=== PATIENT | male | born 1970 | race Caucasian/White ===

== ENCOUNTER 2020-02-05 18:24 | Inpatient (IN) | payer OTHER, SELFPAY ==
[2020-02-05 18:26] VITALS: BP 183/110; PULSE 120; RESP 20; TEMP 37.1; O2SAT 98; BMI 20.5
--- NOTE | 2020-02-05 18:38 | ED.VIS.GEN ---
History of Present Illness Chief Complaint: Substance Abuse Informant: Patient Onset: Days Context: Gradual Onset Timing: Continuous Current Severity: Moderate Maximum Severity: Moderate Narrative: The patient is a 50-year-old male with no significant medical history that presents to the emergency department requesting detox from alcohol. Patient states he drinks at least 6 beers a night. He states on the weekends, he will drink 10-12. He states his been doing this for years. He states his up point where it is affecting his job. He actually went through [facility] and was referred here. He does admit to some tremulousness and mild anxiety. He denies any fevers or chills. He denies any other systemic symptoms. Prior similar symptoms: No Recent Illness/Hospitalization: No Past Medical History - Allergies and Home Meds Allergies/Adverse Reactions: Allergies No Known Allergies Allergy (Verified 02/05/20 18:26) Primary Care Physician: Amelia Caputo MD [Primary Care Provider] - Prior records reviewed: Yes Past Medical History: None Surgical History: no surgical history Smoking Status: Unknown if ever smoked Review of Systems General: Denies: Chills, Fever, Sweats Eyes: Denies: Visual changes - bilaterally, Diplopia ENT: Denies: Rhinorrhea, Sore throat Cardiovascular: Denies: Chest pain, Palpitations Respiratory: Denies: Dyspnea, Cough, Dyspnea on exertion Gastrointestinal: Denies: Abdominal pain, Nausea, Vomiting, Diarrhea, Melena, Hematochezia Genitourinary: Denies: Dysuria, Hematuria, Frequency Musculoskeletal: Denies: Back pain, Extremity Pain Skin: Denies: Rash, Wounds Neurological: Denies: Headache, Weakness, Numbness Physical Exam Vital Signs/Narrative: Vital Signs Temp Pulse Resp BP Pulse Ox 02/05/20 18:26 98.8 F 120 H 20 H 183/110 H 98 Inital Vital Signs reviewed: Yes General: Well nourished, Well developed, No Acute Distress Head: Normocephalic, Atraumatic Eyes: Perrl, EOMI ENT: Moist mucous membranes, No rhinorrhea Neck: Supple, Nontender Cardiovascular: Regular rate, Regular rhythm, No murmurs Respiratory: No distress, CTA bilaterally, Chest nontender Abdomen: Soft, Nontender, Nondistended, Normal bowel sounds Back: Nontender, Normal Inspection Extremities: Nontender, No edema Skin: Normal color, No rash Neurological: Alert, Oriented x3, Cranial nerves II-XII grossly intact, Normal Strength, Normal Sensation Psychological: Normal affect, Normal Mood Diagnostic/Tx/Re-eval Abnormal Lab Results 02/05/20 02/05/20 02/05/20 19:04 19:04 19:04 WBC 5.2 RBC 4.59 L Hgb 15.1 Hct 44.7 MCV 97.4 H MCH 32.9 H MCHC 33.8 RDW Std Deviation 43.1 RDW Coeff of Arvin 11.9 Plt Count 220 MPV 8.5 Immature Gran % (Auto) 0.200 Neut % (Auto) 68.1 Lymph % (Auto) 19.4 [place] % (Auto) 11.9 H Eos % (Auto) 0.2 Baso % (Auto) 0.2 Absolute Neuts (auto) 3.6 Absolute Lymphs (auto) 1.01 Nucleated RBC % 0 Sodium 136 Potassium 3.7 Chloride 100 Carbon Dioxide 28.0 Anion Gap 8 BUN 13 Creatinine 1.04 Estim Creat Clear Calc 74.38 Est GFR (MDRD) Af Amer 98 Est GFR (MDRD) Non-Af 81 BUN/Creatinine Ratio 12.5 Glucose 183 H Calcium 9.3 Total Bilirubin 0.70 AST 28 ALT 28 Alkaline Phosphatase 54 Total Protein 8.0 Albumin 4.3 Globulin 3.7 Albumin/Globulin Ratio 1.2 Ur Drug Screen Comment Ethyl Alcohol < 3.0 02/05/20 19:31 WBC RBC Hgb Hct MCV MCH MCHC RDW Std Deviation RDW Coeff of Arvin Plt Count MPV Immature Gran % (Auto) Neut % (Auto) Lymph % (Auto) [place] % (Auto) Eos % (Auto) Baso % (Auto) Absolute Neuts (auto) Absolute Lymphs (auto) Nucleated RBC % Sodium Potassium Chloride Carbon Dioxide Anion Gap BUN Creatinine Estim Creat Clear Calc Est GFR (MDRD) Af Amer Est GFR (MDRD) Non-Af BUN/Creatinine Ratio Glucose Calcium Total Bilirubin AST ALT Alkaline Phosphatase Total Protein Albumin Globulin Albumin/Globulin Ratio Ur Drug Screen Comment Ethyl Alcohol - Medical Decision Making The patient presents to the emergency department requesting inpatient detox. He does have evidence of withdrawal. He is been restless. He has an extension tremor. He is tachycardic and hypertensive. Metabolic work-up was pursued. Screening labs are unremarkable. Patient was given Ativan and his heart rate had decreased into the 70s. At this point, given documented history of alcohol dependence, I do feel that he would benefit from detox as he is already experiencing symptoms of withdrawal. Patient was discussed with the hospitalist. Impression 1. Alcohol withdrawal ED Disposition - Plan for ED Patient: Referrals: Amelia Caputo MD [Primary Care Provider] -
[2020-02-05] MEDS: Ondansetron 4 MG/2 ML Vial IV (19:00)
[2020-02-05] MEDS: 0.9% Normal Saline 1,000 ML 1000 ML IV (19:00)
[2020-02-05] MEDS: LORazepam 2 MG/ML Syringe 1 MG IV (19:01)
[2020-02-05 19:18] LABS: Absolute Lymphocyte Count 1.01 X10^3/uL (0.83-4.51); Absolute Neutrophil Count 3.6 X10^3/uL (2.0-7.7); Basophil# 0.01 X10^3/uL; Basophil% 0.2 % (0-1); Eosinophil# 0.01 X10^3/uL; Eosinophils% 0.2 % (0-5); Hematocrit 44.7 % (40-54); Hemoglobin 15.1 g/dL (13.0-16.5); Lymphocyte # 1.01 X10^3/ul (4.0); Lymphocyte % 19.4 % (19-41); Mean Corp Hgb Conc 33.8 g/dL (32-36); Mean Corpuscular Hgb 32.9 pg (27.0-32.0); Mean Corpuscular Volume 97.4 fL (80-94); Mean Platelet Vol. 8.5 fl (6.2-12.0); Monocyte# 0.62 X10^3/uL; Monocyte% 11.9 % (0-10); NRBC Flagged by Analyzer 0 % (0-5); Neutrophil # 3.55 X10^3/uL (2.7-7.7); Neutrophil % 68.1 % (47-70); Platelet Count 220 K/mm3 (150-450); RBC Distribution Width CV 11.9 % (11.6-14.6); RBC Distribution Width SD 43.1 fl (35.1-43.9); Red Blood Count 4.59 M/mm3 (4.6-6.2); White Blood Count 5.2 K/mm3 (4.4-11.0)
[2020-02-05 19:32] LABS: ALB/GLOB Ratio 1.2 RATIO (0.9-2.4); AST(SGOT) 28 U/L (15-37); Alanine Aminotransfer ALT/SGPT 28 U/L (16-61); Albumin, Serum 4.3 g/dL (3.2-5.0); Alkaline Phosphatase 54 U/L (45-117); Anion Gap 8 (5-15); BUN 13 mg/dL (7-18); BUN/Creat Ratio 12.5 RATIO (10-20); Calcium,Total 9.3 mg/dL (8.5-10.1); Chloride 100 mmol/L (98-107); Creatinine, Serum 1.04 mg/dL (0.70-1.30); EST Glomerular Filtration Rate 81 mL/min (>60); Est Glom Filt Rate - Afr Amer 98 mL/min (>60); Estimated Creatinine Clearance 74.38 ml/min; Globulin 3.7 g/dL (2.2-4.2); Glucose 183 mg/dL (74-106); Potassium 3.7 mmol/L (3.5-5.1); Sodium Level 136 mmol/L (136-145)
[2020-02-05 19:55] LABS: Alcohol, Blood (Medical)-Serum < 3.0 mg/dL
--- NOTE | 2020-02-05 20:10 | HP.PCM_ITS ---
Problem List (1) HTN (hypertension) Status: Chronic (2) Alcohol dependence Status: Acute History of Present Illness Date of Admission: 02/05/20 Chief Complaint: alcohol withdrawal The patient is a 50 year old M with significant history of hypertension and alcoholism who presents emergency department with alcohol withdrawal symptoms and wanting to detox. Patient drinks 4-6 beers every day. Occasionally he drinks something harder like Rum . Last time he drank was 2 days ago. Reports tremors and abdominal upset. He began drinking heavily about 3 years ago. He denies ever going to rehab for alcoholism. Reportedly patient called [facility] and he was directed to the emergency department. Past Medical History Past Medical History (Chronic Problems): Chronic Problems HTN (hypertension) (Chronic) Allergies No Known Allergies Allergy (Verified 02/05/20 18:26) Home Medications: Ambulatory Orders Medication Instructions Recorded NK 02/05/20 Surgical History: no surgical history Smoking Status: Current every day smoker Tobacco Use: Chew Alcohol: Heavy - *Family History Maternal History Items: Diabetes, Heart Disease Paternal History Items: Cancer, Hypertension, - - Call him Review of Systems Constitutional: Denies: Chills, Fever, Weight Change HEENT: Denies: Head Aches, Sinus Congestion, Sinus Drainage Cardiovascular: Denies: Chest Pain, Palpitations Respiratory: Denies: Cough, Shortness of breath at rest, Sputum production Gastrointestinal: Denies: Nausea, Vomiting Genitourinary: Denies: Dysuria Musculoskeletal: Denies: Joint Pain, Joint Tenderness Skin: Denies: Rash, Wounds Neurological: Denies: Numbness, Tingling, Focal weakness Psychiatric: Denies: Anxiety, Depression, Homicidal Ideations, Suicidal Ideations Hematologic/ Lymphatic: Denies: Easy Bruising, Easy Bleeding VTE Information - Inpt Only VTE Present on Admission: No VTE Mechan Device Prophylaxis: None VTE Pharm Prophylaxis ordered?: Yes Patient Problems: Active and Suspected Problems Alcohol dependence (Acute) - Physical Exam Vitals/I&O's: Vital Signs Temp Pulse Resp BP Pulse Ox 98.8 F 120 H 20 H 183/110 H 98 02/05/20 18:26 02/05/20 18:26 02/05/20 18:26 02/05/20 18:26 02/05/20 18:26 Oxygen Delivery Method Room Air Weight: 61.2 kg Body Mass Index (BMI) 20.5 Intake and Output for Last 24 Hours 02/03/20 02/04/20 02/05/20 23:59 23:59 23:59 Intake Total 1000 / 1000 Balance 1000 / 1000 General: Alert, Oriented x3, Cooperative HEENT: Atraumatic, PERRLA, EOMI, Normocephalic Neck: Supple, No JVD, Negative Carotid Bruits Lungs: Clear to auscultation, Normal air movement Cardiovascular: Regular rate, Normal S1, Normal S2, No murmurs Abdomen: Bowel Sounds Present, Soft, Non Tender Extremities: No edema, Capillary Refill Less than 3 Seconds Skin: No rashes, No breakdown Musculoskeletal: No Tenderness to Palpation of Joints or Extremities Neurological: Cranial nerves II-XII grossly intact, - - Tremors Psych/Mental Status: Normal Affect, Appropriate Laboratory Results 02/05/20 19:04: WBC 5.2, RBC 4.59 L, Hgb 15.1, Hct 44.7, MCV 97.4 H, MCH 32.9 H, MCHC 33.8, RDW Std Deviation 43.1, RDW Coeff of Arvin 11.9, Plt Count 220, MPV 8.5, Immature Gran % (Auto) 0.200, Neut % (Auto) 68.1, Lymph % (Auto) 19.4, [place] % (Auto) 11.9 H, Eos % (Auto) 0.2, Baso % (Auto) 0.2, Absolute Neuts (auto) 3.6, Absolute Lymphs (auto) 1.01, Nucleated RBC % 0 02/05/20 19:04: Sodium 136, Potassium 3.7, Chloride 100, Carbon Dioxide 28.0, Anion Gap 8, BUN 13, Creatinine 1.04, Estim Creat Clear Calc 74.38, Est GFR (MDRD) Af Amer 98, Est GFR (MDRD) Non-Af 81, BUN/Creatinine Ratio 12.5, Glucose 183 H, Calcium 9.3, Total Bilirubin 0.70, AST 28, ALT 28, Alkaline Phosphatase 54, Total Protein 8.0, Albumin 4.3, Globulin 3.7, Albumin/Globulin Ratio 1.2 02/05/20 19:04: Ethyl Alcohol < 3.0 02/05/20 19:31: Urine Opiates Screen Pending, Urine Methadone Screen Pending, Ur Barbiturates Screen Pending, Ur Phencyclidine Scrn Pending, Ur Amphetamines Screen Pending, U Methamphetamin-MDMA Pending, U Benzodiazepines Scrn Pending, Urine Cocaine Screen Pending, U Cannabinoids Screen Pending, Ur Drug Screen Comment Assessment/Plan All Active Problems Alcohol dependence (Acute) The patient is a 50 year old M with significant history of hypertension and alcoholism who presents at the emergency department with alcohol withdrawal symptoms and wanting to detox. Alcohol dependence and abuse Will put on phenobarbital taper. Other supportive medications with thiamine; folic acid; Bentyl; Vistaril; Imodium; Zofran and trazodone. Counseled Tobacco abuse Chew tobacco Counselled Hypertension Reportedly at home PCP was considering starting patient on high blood pressure medication. Will start patient on metoprolol which will help with his withdrawal symptoms as well. Trend blood pressure and adjust blood pressure medications. Elevated blood glucose without diagnosis of diabetes. Presentation blood glucose was 183. Will repeat BMP in a.m. Will check hemoglobin A1c. DVT prophylaxis Subcutaneous Lovenox Inpatient E&M: 58281 Init Hosp L3
[2020-02-05 20:13] LABS: Amphetamine Urine VISTA NEGATIVE (<1000 ng/mL); Barbiturate Urine VISTA NEGATIVE (< 200 ng/mL); Benzodiazepine Urine VISTA NEGATIVE (< 200 ng/mL); Cocaine Urine VISTA NEGATIVE (< 300 ng/mL); Ecstacy Urine VISTA NEGATIVE (< 500 ng/mL); Methadone Urine VISTA NEGATIVE (< 300 ng/mL); PCP Urine VISTA NEGATIVE (< 25 ng/mL); THC Urine VISTA NEGATIVE (< 50 ng/mL); Vista UDS pH Range 6
[2020-02-05 20:24] VITALS: BP 155/93; PULSE 98; RESP 19; TEMP 37.1; O2SAT 97
[2020-02-05 20:25] VITALS: BP 155/93; PULSE 98; RESP 19; O2SAT 97
[2020-02-05 20:59] VITALS: BMI 19.7
[2020-02-05 21:05] VITALS: BMI 19.7
[2020-02-05 21:09] VITALS: BP 148/93; PULSE 82; RESP 18; TEMP 36.3; O2SAT 97
[2020-02-05 21:24] VITALS: PULSE 82
[2020-02-05] MEDS: Phenobarbital 32.4 MG Tablet 64.8 MG PO (21:24)
[2020-02-05] MEDS: Metoprolol Tartrate 25 MG Tablet 12.5 MG PO (21:24)
[2020-02-06] VITALS (10 sets, daily range): BP systolic 110–145; BP diastolic 68–99; PULSE 64–88; RESP 14–18; TEMP 36.4–36.7; O2SAT 97–100
[2020-02-06] MEDS: Phenobarbital 32.4 MG Tablet 64.8 MG PO ×6 (01:13→21:21)
[2020-02-06 06:38] LABS: Anion Gap 8 (5-15); BUN 11 mg/dL (7-18); Calcium,Total 8.7 mg/dL (8.5-10.1); Chloride 102 mmol/L (98-107); Creatinine, Serum 0.78 mg/dL (0.70-1.30); EST Glomerular Filtration Rate 112 mL/min (>60); Est Glom Filt Rate - Afr Amer 135 mL/min (>60); Estimated Creatinine Clearance 95.44 ml/min; Glucose 89 mg/dL (74-106); Potassium 3.7 mmol/L (3.5-5.1); Sodium Level 136 mmol/L (136-145)
[2020-02-06 08:24] LABS: Hemoglobin A1c 5.1 % (4.2-6.3)
[2020-02-06] MEDS: Metoprolol Tartrate 25 MG Tablet 12.5 MG PO ×2 (09:17→21:20)
[2020-02-06] MEDS: Thiamine Hydrochloride 100 MG Tablet PO (09:18)
[2020-02-06] MEDS: Folic Acid 1 MG Tablet PO (09:18)
[2020-02-06] MEDS: Enoxaparin 40 MG/0.4 ML Syringe SC (09:19)
--- NOTE | 2020-02-06 10:36 | CASEMGMT ---
Social Work Note Pt is RAMP pt. SW spoke with Charge Nurse. Aleyda COUNTRY PRINTER from [facility] is out sick today but will be calling pt to complete assessment and discuss discharge plans for pt. Denisa Christina COUNTRY PRINTER, PUMP SERVICE SUPERVISOR
--- NOTE | 2020-02-06 11:37 | PCM.PN.HOSP ---
Patient Problems: Active and Suspected Problems Alcohol dependence (Acute) Reason for Visit: Follow-up on alcohol withdrawal Subjective: Patient was seen and examined. Admitted last night with acute alcohol withdrawal. No acute events overnight. Patient denied any new symptoms. Objective: Physical exam: General: Alert, Oriented x3, Cooperative HEENT: Atraumatic, PERRLA, EOMI, Normocephalic Neck: Supple, No JVD, Negative Carotid Bruits Lungs: Clear to auscultation, Normal air movement Cardiovascular: Regular rate, Normal S1, Normal S2, No murmurs Abdomen: Bowel Sounds Present, Soft, Non Tender Extremities: No edema, Capillary Refill Less than 3 Seconds Skin: No rashes, No breakdown Musculoskeletal: No Tenderness to Palpation of Joints or Extremities Neurological: Cranial nerves II-XII grossly intact, no tremors seen Psych/Mental Status: Normal Affect, Appropriate Vitals/I&O's: Vital Signs Temp Pulse Resp BP Pulse Ox 97.9 F 83 14 128/87 H 97 02/06/20 09:15 02/06/20 09:17 02/06/20 09:15 02/06/20 09:15 02/06/20 09:15 Oxygen Delivery Method Room Air Weight: 58.9 kg Body Mass Index (BMI) 19.7 Intake and Output for Last 24 Hours 02/04/20 02/05/20 02/06/20 23:59 23:59 23:59 Intake Total 1000 / 1000 600 / 600 Output Total 0 / 0 Balance 1000 / 1000 600 / 600 Laboratory Results 02/05/20 19:04: WBC 5.2, RBC 4.59 L, Hgb 15.1, Hct 44.7, MCV 97.4 H, MCH 32.9 H, MCHC 33.8, RDW Std Deviation 43.1, RDW Coeff of Arvin 11.9, Plt Count 220, MPV 8.5, Immature Gran % (Auto) 0.200, Neut % (Auto) 68.1, Lymph % (Auto) 19.4, [place] % (Auto) 11.9 H, Eos % (Auto) 0.2, Baso % (Auto) 0.2, Absolute Neuts (auto) 3.6, Absolute Lymphs (auto) 1.01, Nucleated RBC % 0 02/05/20 19:04: Sodium 136, Potassium 3.7, Chloride 100, Carbon Dioxide 28.0, Anion Gap 8, BUN 13, Creatinine 1.04, Estim Creat Clear Calc 74.38, Est GFR (MDRD) Af Amer 98, Est GFR (MDRD) Non-Af 81, BUN/Creatinine Ratio 12.5, Glucose 183 H, Calcium 9.3, Total Bilirubin 0.70, AST 28, ALT 28, Alkaline Phosphatase 54, Total Protein 8.0, Albumin 4.3, Globulin 3.7, Albumin/Globulin Ratio 1.2 02/05/20 19:04: Ethyl Alcohol < 3.0 02/05/20 19:31: Urine Opiates Screen NEGATIVE, Urine Methadone Screen NEGATIVE, Ur Barbiturates Screen NEGATIVE, Ur Phencyclidine Scrn NEGATIVE, Ur Amphetamines Screen NEGATIVE, U Methamphetamin-MDMA NEGATIVE, U Benzodiazepines Scrn NEGATIVE, Urine Cocaine Screen NEGATIVE, U Cannabinoids Screen NEGATIVE, Ur Drug Screen Comment 02/06/20 05:38: Sodium 136, Potassium 3.7, Chloride 102, Carbon Dioxide 26.0, Anion Gap 8, BUN 11, Creatinine 0.78, Estim Creat Clear Calc 95.44, Est GFR (MDRD) Af Amer 135, Est GFR (MDRD) Non-Af 112, BUN/Creatinine Ratio 14.0, Glucose 89, Calcium 8.7 02/06/20 05:38: Hemoglobin A1c 5.1 Current Medications Acetaminophen (Tylenol) 650 mg PO Q6H PRN PRN PRN Reason: Pain Score 1-10/Temp > 100.7 F Dicyclomine HCl (Bentyl) 20 mg PO Q6H PRN PRN PRN Reason: abdominal discomfort Enoxaparin Sodium (Lovenox) 40 mg SC DAILY [facility] Last Admin: 02/06/20 09:19 Dose: 40 mg Documented by: Folic Acid (Folic Acid) 1 mg PO DAILY@0800 [facility] Last Admin: 02/06/20 09:18 Dose: 1 mg Documented by: Gabapentin (Neurontin) 300 mg PO Q8H PRN PRN PRN Reason: moderate to severe anxiety Glucagon () 1 mg IM .X1 PRN PRN Reason: Hypoglycemia Hydroxyzine Pamoate (Vistaril Pamoate Capsule) 50 mg PO Q4H PRN PRN PRN Reason: mild anxiety Dextrose (Dextrose 10%-Water) 250 mls @ 999 mls/hr IV .Q16M PRN; Protocol PRN Reason: HYPOGLYCEMIA Loperamide HCl (Imodium) 2 mg PO Q4H PRN PRN PRN Reason: LOOSE STOOLS Metoprolol Tartrate (Lopressor (Beta Jessica)) 12.5 mg PO BID [facility] Last Admin: 02/06/20 09:17 Dose: 12.5 mg Documented by: Nicotine (Nicoderm Cq ([facility] [place])) 21 mg TRANSDERM. DAILY [facility] Last Admin: 02/06/20 11:02 Dose: 21 mg Documented by: Nicotine Polacrilex (Rugby Nicotine ([facility] [place])) 4 mg PO Q2H PRN PRN PRN Reason: Nicotine Craving Ondansetron HCl (Zofran) 8 mg PO Q8H PRN PRN PRN Reason: NAUSEA Phenobarbital (Phenobarbital) 97.2 mg PO Q4H [facility]; Taper Stop: 02/10/20 01:59 Last Admin: 02/06/20 09:17 Dose: 97.2 mg Documented by: Sodium Chloride () 10 - 40 ml IV UD PRN PRN Reason: SALINE FLUSH Thiamine HCl (Vitamin B1) 100 mg PO DAILYCM [facility] Last Admin: 02/06/20 09:18 Dose: 100 mg Documented by: Trazodone HCl (Desyrel) 100 mg PO QHS PRN PRN PRN Reason: INSOMNIA STROKE Vital Signs/Narrative: Vital Signs Temp Pulse Resp BP Pulse Ox 02/06/20 09:17 83 02/06/20 09:15 97.9 F 83 14 128/87 H 97 02/06/20 09:13 97.9 F 83 14 128/87 H 97 Medical Necessity - Tobacco Use Smoking Status: Current every day smoker Tobacco Use: Chew Assessment/Plan All Active Problems Alcohol dependence (Acute) 1. Acute alcohol withdrawal, last CIWA score was 0, continue on phenobarb taper started Continue on folic acid, multivitamin, thiamine Continue with Acute withdrawal protocol 2. Nicotine dependence, counseled to stop, given nicotine patch and gum 3. Hypertension, controlled, continue metoprolol 4. Hyperglycemia, diabetes ruled out with HbA1c 5.1 5. DVT PPx- Lovenox SC Inpatient E&M: 10605 Subs Hosp L2
--- NOTE | 2020-02-06 15:55 | CHAPLAIN ---
Type of Pastoral Visit _x__ Initial Visit ___ Follow-up Visit ___ On-call Visit ___ General Patient Visit ___ Spiritual Assessment ___ Family Conference ___ Bereavement ___ Rapid Response ___ Code Blue ___ Other (describe below) Pastoral Care Referral From _x__ Patient ___ Family ___ Nurse ___ Physician ___ Mirror Painter ___ Trailer Steerer ___ Other (describe below) Sacrament/Intervention _x__ Active listening ___ Anointing ___ Sikh ___ Bereavement ___ Communion _x__ Miguelina exploration ___ _x__ Life review _x__ Prayer ___ Reconciliation ___ Sacrament of Sick _x__ Supportive presence ___ Wedding ___ Other (describe below) Pastoral Comments patient is very welcoming of spiritual care and was found reading his Bible when the butcher chicken and fish entered the room; pt gives lots of life story and reason for his being admitted; pt has good understanding of need for help; pt reports that has good family support from , good employment support, and good nondenominational support as he names wrap yarn sorter and many friends from there; pt would prefer a [place]uel[place] based recovery program and this butcher chicken and fish gave him a list of miguel[place] based organizations in this area
[2020-02-07] VITALS (7 sets, daily range): BP systolic 103–132; BP diastolic 72–99; PULSE 64–91; RESP 16–18; TEMP 36.4–36.6; O2SAT 98–100
[2020-02-07] MEDS: Phenobarbital 32.4 MG Tablet 64.8 MG PO ×5 (01:17→20:58)
--- NOTE | 2020-02-07 09:08 | CASEMGMT ---
Addendum entered by Denisa Christina 02/07/20 14:21: SW received message from Aleyda at [facility] stating she is likely not able to make it to [facility] today, will hopefully be at [facility] tomorrow to complete assessment with pt. Original Note: Social Work Note SW placed a call to Aleyda at [facility] and left message inquiring about update on pt's discharge plans. SW waiting for call back. Denisa Christina YARDING SUPERVISOR, BASIC COMBATANT SWIMMER
[2020-02-07] MEDS: Folic Acid 1 MG Tablet PO (09:12)
[2020-02-07] MEDS: Metoprolol Tartrate 25 MG Tablet 12.5 MG PO ×2 (09:12→20:58)
[2020-02-07] MEDS: Thiamine Hydrochloride 100 MG Tablet PO (09:12)
--- NOTE | 2020-02-07 14:36 | PN_ITS ---
Patient Problems: Active and Suspected Problems Alcohol dependence (Acute) Reason for Visit: Follow-up on alcohol withdrawal Subjective: Was seen and examined. No acute complaints overnight. CIWA scores remain 0. Objective: Physical exam: General: Alert, Oriented x3, Cooperative HEENT: Atraumatic, PERRLA, EOMI, Normocephalic Neck: Supple, No JVD, Negative Carotid Bruits Lungs: Clear to auscultation, Normal air movement Cardiovascular: Regular rate, Normal S1, Normal S2, No murmurs Abdomen: Bowel Sounds Present, Soft, Non Tender Extremities: No edema, Capillary Refill Less than 3 Seconds Skin: No rashes, No breakdown Musculoskeletal: No Tenderness to Palpation of Joints or Extremities Neurological: Cranial nerves II-XII grossly intact, no tremors seen Psych/Mental Status: Normal Affect, Appropriate Vitals/I&O's: Vital Signs Temp Pulse Resp BP Pulse Ox 97.7 F L 91 18 119/72 100 02/07/20 08:57 02/07/20 09:12 02/07/20 08:57 02/07/20 08:57 02/07/20 08:57 Oxygen Delivery Method Room Air Weight: 58.9 kg Body Mass Index (BMI) 19.7 Intake and Output for Last 24 Hours 02/05/20 02/06/20 02/07/20 23:59 23:59 23:59 Intake Total 1000 / 1000 3600 / 3840 1240 / 1240 Output Total 0 / 0 Balance 1000 / 1000 3600 / 3840 1240 / 1240 Current Medications Acetaminophen (Tylenol) 650 mg PO Q6H PRN PRN PRN Reason: Pain Score 1-10/Temp > 100.7 F Dicyclomine HCl (Bentyl) 20 mg PO Q6H PRN PRN PRN Reason: abdominal discomfort Enoxaparin Sodium (Lovenox) 40 mg SC DAILY [facility] Last Admin: 02/07/20 09:13 Dose: Not Given Documented by: Folic Acid (Folic Acid) 1 mg PO DAILY@0800 [facility] Last Admin: 02/07/20 09:12 Dose: 1 mg Documented by: Gabapentin (Neurontin) 300 mg PO Q8H PRN PRN PRN Reason: moderate to severe anxiety Glucagon () 1 mg IM .X1 PRN PRN Reason: Hypoglycemia Hydroxyzine Pamoate (Vistaril Pamoate Capsule) 50 mg PO Q4H PRN PRN PRN Reason: mild anxiety Dextrose (Dextrose 10%-Water) 250 mls @ 999 mls/hr IV .Q16M PRN; Protocol PRN Reason: HYPOGLYCEMIA Loperamide HCl (Imodium) 2 mg PO Q4H PRN PRN PRN Reason: LOOSE STOOLS Metoprolol Tartrate (Lopressor (Beta Jessica)) 12.5 mg PO BID [facility] Last Admin: 02/07/20 09:12 Dose: 12.5 mg Documented by: Nicotine (Nicoderm Cq ([facility])) 21 mg TRANSDERM. DAILY [facility] Last Admin: 02/07/20 09:11 Dose: 21 mg Documented by: Nicotine Polacrilex (Rugby Nicotine ([facility])) 4 mg PO Q2H PRN PRN PRN Reason: Nicotine Craving Last Admin: 02/07/20 13:18 Dose: 4 mg Documented by: Ondansetron HCl (Zofran) 8 mg PO Q8H PRN PRN PRN Reason: NAUSEA Phenobarbital (Phenobarbital) 64.8 mg PO Q4H [facility]; Taper Stop: 02/10/20 01:59 Last Admin: 02/07/20 09:12 Dose: 64.8 mg Documented by: Sodium Chloride () 10 - 40 ml IV UD PRN PRN Reason: SALINE FLUSH Thi[facility]) [facility] Last Admin: 02/07/20 09:12 Dose: 100 mg Documented by: Trazodone HCl (Desyrel) 100 mg PO QHS PRN PRN PRN Reason: INSOMNIA Medical Necessity - Tobacco Use Smoking Status: Current every day smoker Tobacco Use: Chew Assessment/Plan All Active Problems Alcohol dependence (Acute) 1. Acute alcohol withdrawal, last CIWA score was 0, continue on phenobarb taper started Continue on folic acid, multivitamin, thiamine Continue with Acute withdrawal protocol 2. Nicotine dependence, counseled to stop, given nicotine patch and gum 3. Hypertension, controlled, continue metoprolol 4. Hyperglycemia, diabetes ruled out with HbA1c 5.1 5. DVT PPx- Lovenox [place] Inpatient E&M: 52692 [facility] Hosp L2
--- NOTE | 2020-02-07 16:16 | ADDICTION ---
Gerson was alert and oriented upon this writers arrival to his room. This documentation writer met with patient to complete ASAM assessment and to provide discharge planning assistance as he plans to discharge from medical withdrawal management services soon. Patient reported that he wants to explore his treatment options and is not willing to commit to any treatment program at this time. He reported that he has done some research about [facility] [place]-based recovery agencies and wants to learn more about what those agencies have to offer. He shared that he is scheduled to start counseling at [facility] on 02/14/2020 through his employer's wellness program and is also working with the wellness nurse. He reports that at this time, he plans to engage in individual treatment and will discharge to his home following completion of hospital protocol. This documentation writer provided patient with contact number and encouraged patient to reach out if he needs assistance with linkage to resources and/or ongoing, AoD related treatment. He was amiable.
[2020-02-08] MEDS: Phenobarbital 32.4 MG Tablet 64.8 MG PO ×2 (00:59→04:01)
[2020-02-08 04:02] VITALS: BP 99/67; PULSE 59; RESP 16; TEMP 36.7; O2SAT 100
[2020-02-08 07:52] VITALS: BP 103/68; PULSE 70; RESP 18; TEMP 36.6; O2SAT 98
--- NOTE | 2020-02-08 07:58 | DCINST_ITS ---
- Discharge Diagnoses Current Active Problems: Current Active and Chronic Problems HTN (hypertension) (Chronic) Alcohol dependence (Acute) Reason(s) for Visit for Discharge Instructions: Acute alcohol withdrawal You will use the following diet at home:: Regular Your food should be the consistency of: Regular Your liquids should be the consistency of: Regular/Thin Discharge Activity: Return to Normal Activity Additional Instructions: You are strongly advised to avoid alcohol or use of any illicit drug. Avoid smoking. Follow-up with your outpatient rehab program as scheduled. Allergies/Adverse Reactions: Allergies No Known Allergies Allergy (Verified 02/05/20 18:26) Medications to take at Discharge Folic Acid 1 mg PO DAILY@0800 30 Days #30 tab 02/08/20 Nicotine Polacrilex [Nicotine Gum] 4 mg PO Q2H PRN PRN 15 Days #60 gum 02/08/20 Nicotine [Nicoderm Cq] 21 mg TRANSDERM. DAILY 30 Days #30 patch 02/08/20 Phenobarbital 32.4 mg PO Q6H #4 tab 02/08/20 Phenobarbital 64.8 mg PO Q6H 1 Days #3 tab 02/08/20 Thiamine Hydrochloride [Vitamin B1] 100 mg PO DAILYCM 30 Days #30 tab 02/08/20 The following prescriptions were given: Folic Acid 1 mg PO DAILY@0800 30 Days #30 tab Transmission Status: Received by [facility] Nicotine [Nicoderm Cq] 21 mg TRANSDERM. DAILY 30 Days #30 patch Transmission Status: Received by [facility] Nicotine Polacrilex [Nicotine Gum] 4 mg PO Q2H PRN PRN 15 Days #60 gum PRN Reason: Nicotine Craving Transmission Status: Received by [facility] Phenobarbital 64.8 mg PO Q6H 1 Days #3 tab Transmission Status: Received by [facility] Phenobarbital 32.4 mg PO Q6H #4 tab Transmission Status: Received by [facility] Thiamine Hydrochloride [Vitamin B1] 100 mg PO DAILYCM 30 Days #30 tab Transmission Status: Received by [facility] Primary Care Physician: Amelia Caputo MD [Primary Care Provider] - Please follow up with your Primary Care Physician in: within 1-2 weeks Test Results: Test results from this visit will be discussed in further detail at your follow- up appointment, if applicable. Proposed Discharge Date: 02/08/20
[2020-02-08] MEDS: Folic Acid 1 MG Tablet PO (07:59)
[2020-02-08] MEDS: Thiamine Hydrochloride 100 MG Tablet PO (07:59)
--- NOTE | 2020-02-08 07:59 | DS.PCM_ITS ---
Discharge Date and Diagnosis Date of Admission: 02/05/20 Date of Discharge: 02/08/20 - Primary Discharge Diagnosis Active and Suspected Problems Alcohol dependence (Acute) Nicotine dependence Hyperglycemia, type II DM ruled out with normal HbA1c - Secondary Discharge Diagnosis Chronic Problems HTN (hypertension) (Chronic) Hospital Course and Treatment None Operations: None Procedures: None Summary of Care Provided: The patient is a 50 year old M with medical history of hypertension, chronic alcohol use disorder who comes in with alcohol withdrawal symptoms and want to in medical stabilization. Patient admits to drinking about 4-6 beers every day, occasionally recently had a leg cramp. He complains of tremors and abdominal discomfort. He was admitted to the [facility] floor and underwent medical stabilization using phenobarbital. Patient improved and eventually was discharged home to complete phenobarbital taper. He was counseled strongly to avoid drinking alcohol. He would follow-up with 180 in the outpatient. Subjective: On the day of discharge, patient in and examined. He denied any new complaints. Objective: Physical exam: General: Alert, Oriented x3, Cooperative HEENT: Atraumatic, PERRLA, EOMI, Normocephalic Neck: Supple, No JVD, Negative Carotid Bruits Lungs: Clear to auscultation, Normal air movement Cardiovascular: Regular rate, Normal S1, Normal S2, No murmurs Abdomen: Bowel Sounds Present, Soft, Non Tender Extremities: No edema, Capillary Refill Less than 3 Seconds Skin: No rashes, No breakdown Musculoskeletal: No Tenderness to Palpation of Joints or Extremities Neurological: Cranial nerves II-XII grossly intact, no tremors seen Psych/Mental Status: Normal Affect, Appropriate - Physical Exam Vitals/I&O's: Vital Signs Temp Pulse Resp BP Pulse Ox 97.8 F 70 18 103/68 98 02/08/20 07:52 02/08/20 07:52 02/08/20 07:52 02/08/20 07:52 02/08/20 07:52 Oxygen Delivery Method Room Air Weight: 58.9 kg Body Mass Index (BMI) 19.7 Intake and Output for Last 24 Hours 02/06/20 02/07/20 02/08/20 23:59 23:59 23:59 Intake Total 3600 / 3840 1580 / 1580 200 / 200 Output Total 0 / 0 Balance 3600 / 3840 1580 / 1580 200 / 200 Current Medications Acetaminophen (Tylenol) 650 mg PO Q6H PRN PRN PRN Reason: Pain Score 1-10/Temp > 100.7 F Dicyclomine HCl (Bentyl) 20 mg PO Q6H PRN PRN PRN Reason: abdominal discomfort Enoxaparin Sodium (Lovenox) 40 mg SC DAILY [facility] Last Admin: 02/07/20 09:13 Dose: Not Given Documented by: Folic Acid (Folic Acid) 1 mg PO DAILY@0800 [facility] Last Admin: 02/07/20 09:12 Dose: 1 mg Documented by: Gabapentin (Neurontin) 300 mg PO Q8H PRN PRN PRN Reason: moderate to severe anxiety Glucagon () 1 mg IM .X1 PRN PRN Reason: Hypoglycemia Hydroxyzine Pamoate (Vistaril Pamoate Capsule) 50 mg PO Q4H PRN PRN PRN Reason: mild anxiety Dextrose (Dextrose 10%-Water) 250 mls @ 999 mls/hr IV .Q16M PRN; Protocol PRN Reason: HYPOGLYCEMIA Loperamide HCl (Imodium) 2 mg PO Q4H PRN PRN PRN Reason: LOOSE STOOLS Metoprolol Tartrate (Lopressor (Beta Jessica)) 12.5 mg PO BID [facility] Last Admin: 02/07/20 20:58 Dose: 12.5 mg Documented by: Nicotine (Nicoderm Cq (Pbkc)) 21 mg TRANSDERM. DAILY [facility] Last Admin: 02/07/20 09:11 Dose: 21 mg Documented by: Nicotine Polacrilex (Rugby Nicotine (Pbkc)) 4 mg PO Q2H PRN PRN PRN Reason: Nicotine Craving Last Admin: 02/07/20 20:58 Dose: 4 mg Documented by: Ondansetron HCl (Zofran) 8 mg PO Q8H PRN PRN PRN Reason: NAUSEA Phenobarbital (Phenobarbital) 64.8 mg PO Q6H [facility]; Taper Stop: 02/10/20 01:59 Last Admin: 02/08/20 04:01 Dose: 64.8 mg Documented by: Sodium Chloride () 10 - 40 ml IV UD PRN PRN Reason: SALINE FLUSH Thi[facility]amin [facility]) [facility] Admin: 02/07/20 09:12 Dose: 100 mg Documented by: Trazodone HCl (Desyrel) 100 mg PO QHS PRN PRN PRN Reason: INSOMNIA Discharge Diet: No Restrictions Discharge Activity: Return to Normal Activity Home Medications: Medications to take at Discharge Folic Acid 1 mg PO DAILY@0800 30 Days #30 tab 02/08/20 Nicotine Polacrilex [Nicotine Gum] 4 mg PO Q2H PRN PRN 15 Days #60 gum 02/08/20 Nicotine [Nicoderm Cq] 21 mg TRANSDERM. DAILY 30 Days #30 patch 02/08/20 Phenobarbital 32.4 mg PO Q6H #4 tab 02/08/20 Thiamine Hydrochloride [Vitamin B1] 100 mg PO DAILYCM 30 Days #30 tab 02/08/20 Following Prescrptions Were Given to Patient: Folic Acid 1 mg PO DAILY@0800 30 Days #30 tab [facility] Status[id number] Nicotine [Nicoderm Cq] 21 mg TRANSDERM. DAILY 30 Days #30 patch Transmission Status: Received by [facility] 181 Nicotine Polacrilex [Nicotine Gum] 4 mg PO Q2H PRN PRN 15 Days #60 gum PRN Reason: Nicotine Craving Transmission Status: Received by [facility] 181 Phenobarbital 32.4 mg PO Q6H #4 tab Transmission Status: Received by [facility] 181 Thiamine Hydrochloride [Vitamin B1] 100 mg PO DAILYCM 30 Days #30 tab Transmission Status: [id number] Primary Care Physician: Amelia Caputo MD [Primary Care Provider] - Please follow up with your Primary Care Physician in: within 1-2 weeks Disposition: Home Minutes spent on discharge:: 25 Patient Condition:: Stable Medical Necessity - Tobacco Use Smoking Status: Current every day smoker Tobacco Use: Chew Meaningful Use Info Meaningful Use Diagnoses (Choose all that apply): None applicable Inpatient E&M: 22917 Disch Hosp
== END 2020-02-08 09:54 | disposition home or self-care (01) | DRG 897 ==
LOC: ED 18:57 → MS3 20:21
PROVIDERS: Admitting Provider Hospitalist; Emergency Provider Emergency Medicine; PCP Internal Medicine; Visit Provider Internal Medicine
DX: F10.239 Alcohol dependence with withdrawal, unspecified (principal); Y90.9 Presence of alcohol in blood, level not specified; I10 Essential (primary) hypertension; F17.200 Nicotine dependence, unspecified, uncomplicated; F17.220 Nicotine dependence, chewing tobacco, uncomplicated; R73.9 Hyperglycemia, unspecified; Z83.3 Family history of diabetes mellitus
CPT/HCPCS: 36415; 80048; 80053; 80307; 80320; 83036; 85025; 99285; J7030; A4216; G0480; J2405